=== PATIENT | female | born 1970 | race Caucasian/White ===

== ENCOUNTER 2016-12-16 23:03 | Emergency (ER) | payer BC ==
[~2016-12-16] VITALS: Ht 157.5 cm; Wt 67.3 kg
[~2016-12-16 23:03] MED LIST: ADVAIR HFA120 INHALA IH; CHERATUSSIN AC473 ML PO; FAMOTIDINE20 MG PO; GEMFIBROZIL600 MG PO; GLUCOPHAGE1000 MG PO; GLUCOTROL5 MG PO; LANTUS 10100 UNITS/; LANTUS100 UNIT/1 SQ; LEVEMIR100 UNIT/2 SC; LISINOPRIL10 MG PO; LISINOPRIL2.5 MG; METFORMIN HCL500 MG PO; METFORMIN HCL850 MG; METFORMIN HYDROC1 GM MC; METOCLOPRAMIDE10 MG PO; NOVOLOG 10100 UNITS/; NOVOLOG100 UNIT/1 SQ; NOVOLOG100 UNIT/3 SQ; NYSTATIN15 GM TD; PRAVACHOL40 M1 PO; PRAVACHOL40 MG PO; PRAVACHOL80 MG PO; PRAVASTATIN SOD40 MG; PREDNISONE10 MG PO; PRILOSEC40 MG PO; REGLAN10 MG PO; SERTRALINE HCL50 MG PO; SIMVASTATIN20 MG PO; ULTRAM50 MG PO; VENTOLIN HFA18 GM IH; ZESTRIL,PRINIV2.5 MG PO; ZESTRIL,PRINIVI10 MG PO; ZESTRIL2.5 MG PO; ZITHROMAX Z-PA250 MG PO
[2016-12-16 23:53] LABS: BASOPHIL COUNT 0.1 K/uL (0-0.1); EOSINOPHIL (%) 1.4 % (0-5); EOSINOPHIL COUNT 0.1 K/uL (0-0.3); HEMATOCRIT 37.3 % (36.0-46.0); IMMATURE GRANULOCYTE (%) 0.4 % (0.0-0.7); LYMPHOCYTE COUNT 3.6 K/uL (1.0-2.8); MCH 29.2 PG (29.0-34.0); MCHC 33.2 G/DL (30.0-36.0); MEAN PLAT.VOLUME 9.8 uM^3 (9.5-12.4); MONOCYTE (%) 6.9 % (3-12); MONOCYTE COUNT 0.7 K/uL (0-0.8); NEUTROPHIL (%) 52.5 % (45-76); PLATELET COUNT 357 K/uL (156-360); RBC DIS.WIDTH-CV 13.1 % (11.8-14.6); RBC DIS.WIDTH-SD 41.7 % (39-53); RED BLOOD COUNT 4.24 M/uL (3.80-5.20); WHITE BLOOD COUNT 9.4 K/uL (4.1-10.2)
[2016-12-17 00:04] LABS: CHLORIDE 105 mEq/L (99-109); POTASSIUM 3.7 mEq/L (3.7-5.4); SODIUM 143 mEq/L (136-147)
[2016-12-17 00:07] LABS: GLUCOSE 163 mg/dL (70-99)
[2016-12-17 00:08] LABS: ANION GAP 13 MEQ/L (2-14); TOTAL BILIRUBIN 0.3 mg/dL (0.0-1.0)
[2016-12-17 00:09] LABS: SERUM ETHYL ALCOHOL < 10 mg/dL
[2016-12-17 00:10] LABS: GFR ESTIMATE (CALCULATED) > 59 mL/min/
[2016-12-17 00:11] LABS: ALKALINE PHOSPHATASE 45 IU/L (3-129)
[2016-12-17 00:12] LABS: UREA NITROGEN (BUN) 27 mg/dL (9-23)
[2016-12-17 00:14] LABS: SALICYLATE < 5.0 MG/DL (15-30)
[2016-12-17 00:20] LABS: QUANTITATIVE HCG < 4.0 MIU/ML
[2016-12-17 00:32] VITALS: BP 149/75
== END 2016-12-17 00:33 | disposition home or self-care (01) ==
LOC: EME 23:03
PROVIDERS: Emergency Medicine
DX: F32.9 Major depressive disorder, single episode, unspecified (principal); I10 Essential (primary) hypertension; E78.5 Hyperlipidemia, unspecified; J45.909 Unspecified asthma, uncomplicated; Z04.6 Encounter for general psychiatric examination, requested by authority; E11.9 Type 2 diabetes mellitus without complications; Z79.84 Long term (current) use of oral hypoglycemic drugs
CPT/HCPCS: 80053; 81003; 84702; 85025; 90837; 99281; 99284; G0480

== ENCOUNTER → 2016-12-20 | Outpatient (CLI) | payer BC | END | disposition home or self-care (01) | LOC: CDC 15:17 | DX: Z01.810 Encounter for preprocedural cardiovascular examination (principal) | CPT/HCPCS: 93000 ==

== ENCOUNTER 2017-04-01 07:42 | Day surgery (SDC) | payer BC ==
[~2017-04-01] VITALS: Ht 157.5 cm; Wt 68.0 kg
[~2017-04-01 07:42] MED LIST changes: +NOVOLOG 10100 UNITS/ SC
[2017-04-01 08:16] VITALS: BP 114/60
[2017-04-01 08:39] LABS: POINT-OF-CARE METER ID UU14174212; POINT-OF-CARE USER ID AHSRSCSLC11
[2017-04-01 09:34] LABS: METH RESISTANT S AUREUS PCR NEGATIVE (NEGATIVE)
[2017-04-01 09:46] LABS: PROBE CHECK PASS; SPECIMEN PROCESSING CONTROL PASS
[2017-04-01] MEDS ORDERED: ENDOCET 5-3251 EACH PO (11:59)
[2017-04-01] MEDS ORDERED: IBUPROFEN800 MG PO (11:59)
[2017-04-01 12:28] LABS: POINT-OF-CARE METER ID UU13113675; POINT-OF-CARE USER ID ADMKMM76
[2017-04-01 14:18] VITALS: BP 135/63
[2017-04-01 15:18] VITALS: BP 131/61
[2017-04-01 17:18] VITALS: BP 125/71
[2017-04-01 19:39] VITALS: BP 154/69
== END 2017-04-01 19:47 | disposition home or self-care (01) ==
LOC: SDC 07:42
PROVIDERS: Obstetrics & Gynecology
DX: N92.0 Excessive and frequent menstruation with regular cycle (principal); G89.29 Other chronic pain; R10.2 Pelvic and perineal pain; N94.6 Dysmenorrhea, unspecified; E10.9 Type 1 diabetes mellitus without complications; N80.1 Endometriosis of ovary; N13.5 Crossing vessel and stricture of ureter without hydronephrosis; N72 Inflammatory disease of cervix uteri; N80.0 Endometriosis of uterus; M54.5 Low back pain; J45.909 Unspecified asthma, uncomplicated; E78.00 Pure hypercholesterolemia, unspecified; F32.9 Major depressive disorder, single episode, unspecified; F41.9 Anxiety disorder, unspecified; Z79.4 Long term (current) use of insulin; Z80.0 Family history of malignant neoplasm of digestive organs
CPT/HCPCS: 82948; 87641; 88307; J0131; J0330; J0690; J1170; J2405; J2710; J3010